=== PATIENT | male | born 1995 | race Caucasian/White ===

== ENCOUNTER 2019-03-25 13:02 | Emergency (ER) | payer MEDICAID ==
[2019-03-25 13:25] VITALS: RESP 18; TEMP 98.9
--- NOTE | 2019-03-25 14:07 | ED ---
General Adult HPI - General Chief complaint: Recheck/Abnormal Lab/Rx Stated complaint: EPS eval Time Seen by Provider: 03/25/19 13:10 Source: patient, family Mode of arrival: ambulatory Limitations: no limitations - History of Present Illness Initial comments: This is a 23-year-old male with a history of depression and anxiety in the past was brought in by family today for evaluation. He currently been using Xanax he has a history is an anxious cocaine and Adderall the past. He states he been under last stress or recent multiple sources. Per his family's not been acting his usual salt he's been more somnolent sleeping more than eating as well as he normally does not going to work or school. The concern was in addition to taking the Xanax which apparently is been in the form of xani bars he's been expressing desire to leave the family is concerned this means leave the world and dye patient states he wants to go to [place]. He denies any recent alcohol use no other modifying factors at this time. - Related Data Allergies Allergy/AdvReac Type Severity Reaction Status Date / Time No Known Allergies Allergy Verified 03/25/19 13:09 Review of Systems ROS Statement: Those systems with pertinent positive or pertinent negative responses have been documented in the HPI. ROS Other: All systems not noted in ROS Statement are negative. Past Medical History Past Medical History: No Reported History History of Any Multi-Drug Resistant Organisms: None Reported Past Surgical History: No Surgical Hx Reported Past Psychological History: Anxiety, Depression Smoking Status: Never smoker Past Alcohol Use History: Occasional Past Drug Use History: Cocaine, Prescription Drug Abuse General Exam - General Exam Comments Initial Comments: This is a well-developed well-nourished awake alert oriented times 3 male Limitations: no limitations General appearance: alert, in no apparent distress Head exam: Present: atraumatic, normocephalic, normal inspection Eye exam: Present: normal appearance, PERRL, EOMI. Absent: scleral icterus, conjunctival injection, periorbital swelling ENT exam: Present: normal exam, mucous membranes moist Neck exam: Present: normal inspection. Absent: tenderness, meningismus, lymphadenopathy Respiratory exam: Present: normal lung sounds bilaterally. Absent: respiratory distress, wheezes, rales, rhonchi, stridor Cardiovascular Exam: Present: regular rate, normal rhythm, normal heart sounds. Absent: systolic murmur, diastolic murmur, rubs, gallop, clicks GI/Abdominal exam: Present: soft, normal bowel sounds. Absent: distended, tenderness, guarding, rebound, rigid Extremities exam: Present: normal inspection, full ROM, normal capillary refill. Absent: tenderness, pedal edema, joint swelling, calf tenderness Back exam: Present: normal inspection Neurological exam: Present: alert, oriented X3, CN II-XII intact Psychiatric exam: Present: depressed, flat affect Skin exam: Present: warm, dry, intact, normal color. Absent: rash Course Vital Signs 03/25/19 13:09 Temperature 98.9 F Pulse Rate 71 Respiratory 18 Rate Blood Pressure 120/71 O2 Sat by Pulse 99 Oximetry Medical Decision Making - Medical Decision Making Patient was evaluated by the psychiatric services. Deemed to be medically cleared currently he is not a risk to himself or anyone else he will be discharged with follow-up tomorrow with psychiatry. The patient family are in agreement with this. - Lab Data Lab Results 03/25/19 Range/Units 14:24 Urine Opiates Screen Not Detected (NotDetected) Ur Oxycodone Screen Not Detected (NotDetected) Urine Methadone Screen Not Detected (NotDetected) Ur Propoxyphene Screen Not Detected (NotDetected) Ur Barbiturates Screen Not Detected (NotDetected) U Tricyclic Antidepress Not Detected (NotDetected) Ur Phencyclidine Scrn Not Detected (NotDetected) Ur Amphetamines Screen Not Detected (NotDetected) U Methamphetamines Scrn Not Detected (NotDetected) U Benzodiazepines Scrn Detected H (NotDetected) Urine Cocaine Screen Detected H (NotDetected) U Marijuana (THC) Screen Not Detected (NotDetected) Disposition Clinical Impression: Substance abuse, Depression Disposition: HOME SELF-CARE Condition: Good Instructions (If sedation given, give patient instructions): Depression (ED), Polysubstance Abuse (ED) Is patient prescribed a controlled substance at d/c from ED?: No Referrals: Flakito Jaramillo DO [Primary Care Provider] - 1-2 days
[2019-03-25 15:04] LABS: Cocaine Screen,Urine Detected (NotDetected); Opiate Screen,Urine Not Detected (NotDetected); Phencyclidine Screen,Urine Not Detected (NotDetected); Urn Cannabinoid Scrn Not Detected (NotDetected)
[2019-03-25 15:05] LABS: Amphetamine Screen,Urine Not Detected (NotDetected); Barbiturate Screen,Urine Not Detected (NotDetected); Benzodiazepines Screen,Urine Detected (NotDetected); Methadone Screen, Urine Not Detected (NotDetected); Oxycodone Screen, Urine Not Detected (NotDetected); Tricyclic Antidepressant,Urine Not Detected (NotDetected)
[2019-03-25 15:38] VITALS: BP 119/78; PULSE 70
== END 2019-03-25 15:36 | disposition home or self-care (01) ==
LOC: EC 13:02
DX: F32.9 Major depressive disorder, single episode, unspecified (principal); F19.10 Other psychoactive substance abuse, uncomplicated
CPT/HCPCS: 80306; 82075; 99284

== ENCOUNTER 2020-04-19 12:04 | Inpatient (IN) | payer MEDICAID ==
[2020-04-19] MEDS ORDERED: SODIUM CHLORIDE 0.9% 1,000 ML IV STA (12:24)
--- NOTE | 2020-04-19 12:41 | ED ---
General Adult HPI - General Chief complaint: Head Injury Stated complaint: Fall, Head Injury Time Seen by Provider: 04/19/20 12:19 Source: patient, family, RN notes reviewed, old records reviewed Mode of arrival: ambulatory Limitations: altered mental status - History of Present Illness Initial comments: 25-year-old male presenting for evaluation of altered mental status, alcohol and drug abuse as well as head trauma. He is accompanied by his mother who is able to give the majority of the history. He does have history of previous drugs of abuse. He is presenting somewhat altered, he is unable to see her in either ear. He had several falls with head trauma. He admits to alcohol as well as benzodiazepines. He denies overuse of aspirin or salicylate. He denies any other drugs of abuse. Denies focal weakness or numbness. - Related Data Home Medications Medication Instructions Recorded Confirmed No Known Home Medications 04/19/20 04/19/20 Allergies Allergy/AdvReac Type Severity Reaction Status Date / Time No Known Allergies Allergy Verified 04/19/20 13:16 Review of Systems ROS Statement: Those systems with pertinent positive or pertinent negative responses have been documented in the HPI. ROS Other: All systems not noted in ROS Statement are negative. Past Medical History Past Medical History: No Reported History History of Any Multi-Drug Resistant Organisms: None Reported Past Surgical History: No Surgical Hx Reported Past Psychological History: Anxiety, Depression Smoking Status: Never smoker Past Alcohol Use History: Occasional Past Drug Use History: Cocaine, Prescription Drug Abuse General Exam Limitations: altered mental status General appearance: in no apparent distress, lethargic Head exam: Present: atraumatic, normocephalic Eye exam: Present: normal appearance, PERRL, EOMI ENT exam: Present: normal exam, TM's normal bilaterally Neck exam: Present: normal inspection. Absent: tenderness, meningismus Respiratory exam: Present: normal lung sounds bilaterally. Absent: respiratory distress, wheezes Cardiovascular Exam: Present: normal rhythm, tachycardia GI/Abdominal exam: Present: soft. Absent: distended, tenderness, guarding Extremities exam: Present: normal inspection, normal capillary refill Neurological exam: Present: alert, CN II-XII intact, other (Patient moving all extremities symmetrically, 5 out of 5 strength throughout, no ataxia). Absent: motor sensory deficit Skin exam: Present: warm, dry Course Vital Signs 04/19/20 04/19/20 12:12 12:53 Temperature 98.0 F Pulse Rate 58 L 126 H Respiratory 16 18 Rate Blood Pressure 85/55 82/41 O2 Sat by Pulse 97 Oximetry EKG Findings - EKG Comments: EKG Findings:: EKG: Sinus tachycardia, rate of 118, SC interval 118, QRS duration 78, QTC 437, no ST segment elevation Medical Decision Making - Medical Decision Making 25-year-old male presenting for evaluation of confusion, dehydration, bilateral hearing loss. Patient admits to head trauma as well as polysubstance abuse including alcohol, prescription amphetamines, and benzodiazepines. Patient has normal tympanic membranes bilaterally. He is having difficulty hearing, uncertain of the etiology. His laboratory testing reveals leukocytosis with no other infectious symptoms. Patient appears dehydrated. He is in acute kidney failure with a creatinine of 2 and a potassium of 6.2. His EKG shows sinus tachycardia. He's given 2 L of normal saline followed by continuous IV hydration. Laboratory testing will be repeated after initial hydration. He will be admitted for electrolyte monitoring, telemetry, and fluid replacement. - Lab Data Result diagrams: 04/19/20 12:48 04/19/20 12:48 Lab Results 04/19/20 04/19/20 04/19/20 Range/Units 12:48 12:48 12:48 WBC 17.6 H (3.8-10.6) k/uL RBC 5.16 (4.30-5.90) m/uL Hgb 16.4 (13.0-17.5) gm/dL Hct 48.5 (39.0-53.0) % MCV 94.1 (80.0-100.0) fL MCH 31.8 (25.0-35.0) pg MCHC 33.7 (31.0-37.0) g/dL RDW 13.1 (11.5-15.5) % Plt Count 266 (150-450) k/uL MPV 7.0 Neutrophils % 83 % Lymphocytes % 8 % Monocytes % 7 % Eosinophils % 1 % Basophils % 1 % Neutrophils # 14.6 H (1.3-7.7) k/uL Lymphocytes # 1.4 (1.0-4.8) k/uL Monocytes # 1.2 H (0-1.0) k/uL Eosinophils # 0.1 (0-0.7) k/uL Basophils # 0.2 (0-0.2) k/uL PT 10.3 (9.0-12.0) sec INR 1.0 (<1.2) Sodium 138 (137-145) mmol/L Potassium 6.2 H* (3.5-5.1) mmol/L Chloride 104 (98-107) mmol/L Carbon Dioxide 27 (22-30) mmol/L Anion Gap 7 mmol/L BUN 16 (9-20) mg/dL Creatinine 2.06 H (0.66-1.25) mg/dL Est GFR (CKD-EPI)AfAm 50 (>60 ml/min/1.73 sqM) Est GFR (CKD-EPI)NonAf 43 (>60 ml/min/1.73 sqM) Glucose 71 L (74-99) mg/dL Plasma Lactic Acid Markus (0.7-2.0) mmol/L Calcium 9.0 (8.4-10.2) mg/dL Total Bilirubin 0.5 (0.2-1.3) mg/dL AST 40 (17-59) U/L ALT 44 (4-49) U/L Alkaline Phosphatase 64 (38-126) U/L Total Protein 7.9 (6.3-8.2) g/dL Albumin 4.7 (3.5-5.0) g/dL Salicylates <1.0 mg/dL Acetaminophen <10.0 ug/mL Serum Alcohol <10 mg/dL 04/19/20 Range/Units 12:48 WBC (3.8-10.6) k/uL RBC (4.30-5.90) m/uL Hgb (13.0-17.5) gm/dL Hct (39.0-53.0) % MCV (80.0-100.0) fL MCH (25.0-35.0) pg MCHC (31.0-37.0) g/dL RDW (11.5-15.5) % Plt Count (150-450) k/uL MPV Neutrophils % % Lymphocytes % % Monocytes % % Eosinophils % % Basophils % % Neutrophils # (1.3-7.7) k/uL Lymphocytes # (1.0-4.8) k/uL Monocytes # (0-1.0) k/uL Eosinophils # (0-0.7) k/uL Basophils # (0-0.2) k/uL PT (9.0-12.0) sec INR (<1.2) Sodium (137-145) mmol/L Potassium (3.5-5.1) mmol/L Chloride (98-107) mmol/L Carbon Dioxide (22-30) mmol/L Anion Gap mmol/L BUN (9-20) mg/dL Creatinine (0.66-1.25) mg/dL Est GFR (CKD-EPI)AfAm (>60 ml/min/1.73 sqM) Est GFR (CKD-EPI)NonAf (>60 ml/min/1.73 sqM) Glucose (74-99) mg/dL Plasma Lactic Acid Markus 2.1 H* (0.7-2.0) mmol/L Calcium (8.4-10.2) mg/dL Total Bilirubin (0.2-1.3) mg/dL AST (17-59) U/L ALT (4-49) U/L Alkaline Phosphatase (38-126) U/L Total Protein (6.3-8.2) g/dL Albumin (3.5-5.0) g/dL Salicylates mg/dL Acetaminophen ug/mL Serum Alcohol mg/dL Critical Care Time Critical Care Time: Yes Total Critical Care Time: 35 Disposition Clinical Impression: Hyperkalemia, Acute kidney injury, Polysubstance abuse, Bilateral hearing loss Disposition: ADMITTED IP TO THIS [facility] Condition: Stable Is patient prescribed a controlled substance at d/c from ED?: No Referrals: Flakito Jaramillo DO [Primary Care Provider] - 1-2 days Time of Disposition: 13:55 Decision to Admit Reason: Admit from EC Decision Date: 04/19/20 Decision Time: 13:55
[2020-04-19 13:09] LABS: ALT 44 U/L (4-49); AST 40 U/L (17-59); Acetaminophen <10.0 ug/mL; African American GFR (CKD) 50 (>60 ml/min/1.73 sqM); Albumin 4.7 g/dL (3.5-5.0); Alcohol <10 mg/dL; Alkaline Phosphatase 64 U/L (38-126); Anion Gap 7 mmol/L; Blood Urea Nitrogen 16 mg/dL (9-20); Carbon Dioxide 27 mmol/L (22-30); Chloride 104 mmol/L (98-107); Glucose 71 mg/dL (74-99); Non-African American GFR(CKD) 43 (>60 ml/min/1.73 sqM); Salicylate <1.0 mg/dL; Sodium 138 mmol/L (137-145); Total Bilirubin 0.5 mg/dL (0.2-1.3); Total Protein 7.9 g/dL (6.3-8.2)
[2020-04-19 13:12] LABS: Potassium 6.2 mmol/L (3.5-5.1)
[2020-04-19] MEDS ORDERED: SODIUM CHLORIDE 0.9% 1,000 ML IV ONE (13:12)
--- NOTE | 2020-04-19 13:16 | CT ---
EXAMINATION TYPE: CT brain susieine wo con DATE OF EXAM: 04/19/2020 COMPARISON: None HISTORY: Fall yesterday with injury CT DLP: 1511.1 mGycm, Automated exposure control for dose reduction was used. CONTRAST: Patient injected with 0 mL of Isovue 300. CT of the brain is performed utilizing 3 mm thick sections through the posterior fossa and 3 mm thick sections through the remaining calvarium. Study is performed within 24 hours of arrival to the hospital. No abnormal hyperdensity is present to suggest an acute intracranial hemorrhage. No mass lesion is evident. No acute infarcts are evident. Ventricles and sulci are appropriate for the patient age. Paranasal sinuses and mastoid air cells within the [id number] are clear. IMPRESSIONS: 1. Normal CT brain. CT cervical spine. COMPARISON: None CT of the cervical spine is performed in the axial plane at 2 mm thick sections. Reconstructed image s in the coronal, and sagittal plane are reviewed on the computer. No acute fractures are evident. Vertebral body alignment is normal. Disc heights are preserved. Vertebral body heights are preserved. No spinal canal stenosis is evident. No neural foraminal stenosis is evident. IMPRESSIONS: 1. Normal CT cervical spine.
[2020-04-19 13:21] LABS: Basophils # (A) 0.2 k/uL (0-0.2); Basophils % (A) 1 %; Eosinophils # (A) 0.1 k/uL (0-0.7); Eosinophils % (A) 1 %; HCT 48.5 % (39.0-53.0); HGB 16.4 gm/dL (13.0-17.5); Lymphocytes # (A) 1.4 k/uL (1.0-4.8); Lymphocytes % (A) 8 %; MCH 31.8 pg (25.0-35.0); MCHC 33.7 g/dL (31.0-37.0); MCV 94.1 fL (80.0-100.0); Monocytes # (A) 1.2 k/uL (0-1.0); Monocytes % (A) 7 %; Neutrophils # (A) 14.6 k/uL (1.3-7.7); Neutrophils % (A) 83 %; Platelet Count 266 k/uL (150-450); RBC 5.16 m/uL (4.30-5.90); RDW 13.1 % (11.5-15.5); WBC 17.6 k/uL (3.8-10.6)
[2020-04-19 13:27] LABS: Prothrombin Time 10.3 sec (9.0-12.0)
[2020-04-19] MEDS ORDERED: NALOXONE 0.4 MG/ML 1 ML VIAL IV PRN (13:50)
[2020-04-19] MEDS ORDERED: DEXAMETHASONE SOD PHOSPHATE 10 MG/ML 1 ML VIAL IV STA (13:56)
[2020-04-19] MEDS: SODIUM CHLORIDE 0.9% 1,000 ML IV SCH ×2 (14:03→21:23)
[2020-04-19 14:08] LABS: Basophils # (A) 0.3 k/uL (0-0.2); Basophils % (A) 2 %; Eosinophils # (A) 0.2 k/uL (0-0.7); Eosinophils % (A) 1 %; HCT 44.3 % (39.0-53.0); HGB 15.1 gm/dL (13.0-17.5); Lymphocytes # (A) 1.4 k/uL (1.0-4.8); Lymphocytes % (A) 9 %; MCH 31.9 pg (25.0-35.0); MCHC 34.1 g/dL (31.0-37.0); MCV 93.6 fL (80.0-100.0); Mean Platelet Volume 6.9; Monocytes # (A) 0.9 k/uL (0-1.0); Monocytes % (A) 6 %; Neutrophils # (A) 12.7 k/uL (1.3-7.7); Neutrophils % (A) 81 %; Platelet Count 229 k/uL (150-450); RBC 4.74 m/uL (4.30-5.90); RDW 12.7 % (11.5-15.5); WBC 15.7 k/uL (3.8-10.6)
[2020-04-19 14:12] LABS: Glucose,Whole Blood 89 mg/dL (75-99)
[2020-04-19 14:18] LABS: Albumin 3.8 g/dL (3.5-5.0); Calcium 7.7 mg/dL (8.4-10.2); Magnesium 1.9 mg/dL (1.6-2.3); Potassium 5.6 mmol/L (3.5-5.1); Total Bilirubin 0.4 mg/dL (0.2-1.3); Total Protein 6.6 g/dL (6.3-8.2)
[2020-04-19] MEDS ORDERED: CALCIUM GLUCONATE 1 GM in SODIUM CHLORIDE 0.9% 100 ML IVPB ONE (14:45)
--- NOTE | 2020-04-19 15:55 | P.HPIM ---
History of Present Illness On-call hospitalist covering Dr. Jaramillo over the weekend, Dr. Jaramillo resume the care of the patient on Saturday 04/21 This is a pleasant 25 years old male with no significant past medical history. He is a patient of Dr. Jaramillo. Patient presents because of hearing difficulties, altered mental status. Patient states yesterday he was walking down stairs when he slipped and fell on the floor and he hit his head, after that he sat down for half an hour, felt better and he went to his friend's home about half mile away where he spent the night using a dural, Xanax and alcohol, next day he went home and then went to work (at [employer]) when they noticed he has hearing difficulty in both sides and they sent him to the hospital. In the hospital patient was a little bit confused and he has hearing difficulty on both sides. However curren tly now he is awake and alert. On admission patient was found to be hypotensive 85/55, received 2 L of normal saline and his blood pressure is 94/58, he was tachycardic at 126 and currently 110. Also he has leukocytosis of 17.6 K came down to 15.7. His potassium was elevated at 6.2 and creatinine 2.0, with IV fluid came down to 5.6 and 1.7 creatinine respectively. Risks of BMP is unremarkable and liver enzymes are not elevated. Lactic acid is high at 2.1. Salicylate, Tylenol and alcohol levels were all less than 10. EKG showing sinus tachycardia at [address]-T changes. CT of the head and cervical spine showing normal cervical CT and normal CT of the brain In the emergency room he received 2 L of normal saline, and started on normal saline at 2:30 milliliters per hour. Review of Systems CONSTITUTIONAL: No fever, no malaise, no fatigue. HEENT: No recent visual problems or hearing problems. Denied any sore throat. CARDIOVASCULAR: No orthopnea, PND, no palpitations, no syncope. PULMONARY: No shortness of breath, no cough, no hemoptysis. GASTROINTESTINAL: No diarrhea, no nausea, no vomiting, no abdominal pain. Normoactive bowel sounds. NEUROLOGICAL: No headaches, no weakness, no numbness. HEMATOLOGICAL: Denies any bleeding or petechiae. GENITOURINARY: Denies any burning micturition, frequency, or urgency. MUSCULOSKELETAL/RHEUMATOLOGICAL: Denies any joint pain, swelling, or any muscle pain. ENDOCRINE: Denies any polyuria or polydipsia. Past Medical History Past Medical History: No Reported History History of Any Multi-Drug Resistant Organisms: None Reported Past Surgical History: No Surgical Hx Reported Past Psychological History: Anxiety, Depression Smoking Status: Never smoker Past Alcohol Use History: Occasional Past Drug Use History: Cocaine, Prescription Drug Abuse Medications and Allergies Home Medications Medication Instructions Recorded Confirmed Type No Known Home Medications 04/19/20 04/19/20 History Allergies Allergy/AdvReac Type Severity Reaction Status Date / Time No Known Allergies Allergy Verified 04/19/20 13:16 Physical Exam Vitals: Vital Signs Temp Pulse Resp BP Pulse Ox 04/19/20 14:28 110 H 18 94/58 100 04/19/20 12:53 126 H 18 82/41 04/19/20 12:12 98.0 F 58 L 16 85/55 97 Intake and Output 04/19/20 04/19/20 04/19/20 06:59 14:59 22:59 Other: Weight 85.275 kg GENERAL: The patient is alert and oriented x3, not in any acute distress. Well developed, well nourished. HEENT: Pupils are round and equally reacting to light. EOMI. No scleral icterus. No conjunctival pallor. Normocephalic, atraumatic. No pharyngeal erythema. No thyromegaly. CARDIOVASCULAR: S1 and S2 present. No murmurs, rubs, or gallops. PULMONARY: Chest is clear to auscultation, no wheezing or crackles. ABDOMEN: Soft, nontender, nondistended, normoactive bowel sounds. No palpable organomegaly. MUSCULOSKELETAL: No joint swelling or deformity. EXTREMITIES: No cyanosis, clubbing, or pedal edema. NEUROLOGICAL: Gross neurological examination did not reveal any focal deficits. SKIN: No rashes. No petechiae Results CBC & Chem 7: 04/19/20 14:02 04/19/20 14:02 Labs: Abnormal Lab Results - Last 24 Hours (Table) 04/19/20 04/19/20 04/19/20 Range/Units 12:48 12:48 12:48 WBC 17.6 H (3.8-10.6) k/uL Neutrophils # 14.6 H (1.3-7.7) k/uL Monocytes # 1.2 H (0-1.0) k/uL Basophils # (0-0.2) k/uL Potassium 6.2 H* (3.5-5.1) mmol/L Chloride (98-107) mmol/L Creatinine 2.06 H (0.66-1.25) mg/dL Glucose 71 L (74-99) mg/dL Plasma Lactic Acid Markus 2.1 H* (0.7-2.0) mmol/L Calcium (8.4-10.2) mg/dL 04/19/20 04/19/20 Range/Units 14:02 14:02 WBC 15.7 H (3.8-10.6) k/uL Neutrophils # 12.7 H (1.3-7.7) k/uL Monocytes # (0-1.0) k/uL Basophils # 0.3 H (0-0.2) k/uL Potassium 5.6 H (3.5-5.1) mmol/L Chloride 108 H (98-107) mmol/L Creatinine 1.77 H (0.66-1.25) mg/dL Glucose (74-99) mg/dL Plasma Lactic Acid Markus (0.7-2.0) mmol/L Calcium 7.7 L (8.4-10.2) mg/dL Assessment and Plan Assessment: -Bilateral hearing difficulty , or going to consult ENT service -Substance abuse, patient is counseled to quit -Hypotension, continue with aggressive hydration and monitor the patient closely -Acute kidney injury with hyperkalemia, mostly prerenal, continue with IV fluids, monitor creatinine and potassium -Anxiety, and depression. No suicidal ideation. Consult psychiatry DVT prophylaxis: Subcutaneous heparin GI prophylaxis Pepcid Prognosis is guarded Plan: This is a pleasant 25 years old male who presents with substance abuse, acute kidney injury, depression and bilateral hearing difficulty. Continue with IV fluid, possible psychiatrist and ENT. Monitor creatinine and potassium. Put the patient on neuro check Labs and medication were reviewed.. Continue same treatment. Continue with symptomatic treatment. Resume home medication. Monitor lytes and vitals. DVT and GI prophylaxis. Further recommendations depends on the clinical course of the patient DVT prophylaxis: Subcutaneous heparin GI Prophylaxis: Pepcid Prognosis is guarded
[2020-04-19] MEDS ORDERED: ACETAMINOPHEN TAB 325 MG TAB PO PRN (19:19)
[2020-04-19] MEDS: FAMOTIDINE 20 MG/2 ML VIAL IV SCH (21:22)
[2020-04-19] MEDS: HEPARIN SODIUM,PORCINE 5,000 UNIT/ML 1 ML VIAL SQ SCH (21:23)
[2020-04-19 22:46] LABS: Appearance,Urine Cloudy (Clear); Bilirubin,Urine Negative (Negative); Blood,Urine Small (Negative); Cellular Casts,Urine 4 /lpf (0); Color,Urine Yellow; Glucose,Urine (UA) Negative (Negative); Granular Casts,Urine 5 /lpf (0); Hyaline Casts,Urine 45 /lpf (0-2); Ketones,Urine Negative (Negative); Leukocyte Esterase,Urine Negative (Negative); Mucus,Urine Few /hpf; Nitrite,Urine Negative (Negative); PH, Urine 5.5 (5.0-8.0); Protein,Urine 1+ (Negative); RBC,Urine 4 /hpf (0-5); Specific Gravity,Urine 1.015 (1.001-1.035); Sperm,Urine Moderate /hpf; Squamous Epithelial Cell,Urine 3 /hpf (0-4); Urobilinogen,Urine <2.0 mg/dL (<2.0); WBC,Urine 18 /hpf (0-5)
[2020-04-19 22:50] LABS: Amphetamine Screen,Urine Detected (NotDetected); Barbiturate Screen,Urine Not Detected (NotDetected); Benzodiazepines Screen,Urine Detected (NotDetected); Cocaine Screen,Urine Not Detected (NotDetected); Methadone Screen, Urine Not Detected (NotDetected); Opiate Screen,Urine Not Detected (NotDetected); Oxycodone Screen, Urine Not Detected (NotDetected); Phencyclidine Screen,Urine Not Detected (NotDetected); Tricyclic Antidepressant,Urine Not Detected (NotDetected); Urn Cannabinoid Scrn Detected (NotDetected)
[2020-04-20] MEDS: SODIUM CHLORIDE 0.9% 1,000 ML IV SCH ×2 (03:40→15:25)
[2020-04-20 07:19] LABS: Basophils # (A) 0.1 k/uL (0-0.2); Basophils % (A) 0 %; Eosinophils % (A) 0 %; HCT 41.8 % (39.0-53.0); HGB 14.4 gm/dL (13.0-17.5); Lymphocytes # (A) 0.9 k/uL (1.0-4.8); Lymphocytes % (A) 9 %; MCH 32.3 pg (25.0-35.0); MCHC 34.5 g/dL (31.0-37.0); MCV 93.5 fL (80.0-100.0); Mean Platelet Volume 7.2; Monocytes # (A) 0.6 k/uL (0-1.0); Monocytes % (A) 5 %; Neutrophils # (A) 8.8 k/uL (1.3-7.7); Neutrophils % (A) 84 %; Platelet Count 183 k/uL (150-450); RBC 4.47 m/uL (4.30-5.90); RDW 12.4 % (11.5-15.5); WBC 10.5 k/uL (3.8-10.6)
[2020-04-20 07:28] LABS: Chloride 104 mmol/L (98-107)
[2020-04-20 07:30] LABS: African American GFR (CKD) >90 (>60 ml/min/1.73 sqM); Anion Gap 4 mmol/L; Blood Urea Nitrogen 15 mg/dL (9-20); Calcium 8.4 mg/dL (8.4-10.2); Carbon Dioxide 26 mmol/L (22-30); Glucose 136 mg/dL (74-99); Non-African American GFR(CKD) >90 (>60 ml/min/1.73 sqM); Potassium 5.1 mmol/L (3.5-5.1); Sodium 134 mmol/L (137-145)
[2020-04-20] MEDS: FAMOTIDINE 20 MG/2 ML VIAL IV SCH ×2 (09:29→20:45)
[2020-04-20] MEDS: HEPARIN SODIUM,PORCINE 5,000 UNIT/ML 1 ML VIAL SQ SCH ×2 (09:29→20:46)
--- NOTE | 2020-04-20 14:25 | P.PN ---
Subjective On-call hospitalist covering Dr. Jaramillo over the weekend, Dr. Jaramillo resume the care of the patient on Saturday 04/21 This is a pleasant 25 years old male with no significant past medical history. He is a patient of Dr. Jaramillo. Patient presents because of hearing difficulties, altered mental status. Patient states yesterday he was walking down stairs when he slipped and fell on the floor and he hit his head, after that he sat down for half an hour, felt better and he went to his friend's home about half mile away where he spent the night using a dural, Xanax and alcohol, next day he went home and then went to work (at [employer]) when they noticed he has hearing difficulty in both sides and they sent him to the hospital. In the hospital patient was a little bit confused and he has hearing difficulty on both sides. However currently now he is awake and alert. On admission patient was found to be hypotensive 85/55, received 2 L of normal saline and his blood pressure is 94/58, he was tachycardic at 126 and currently 110. Also he has leukocytosis of 17.6 K came down to 15.7. His potassium was elevated at 6.2 and creatinine 2.0, with IV fluid came down to 5.6 and 1.7 creatinine respectively. Risks of BMP is unremarkable and liver enzymes are not elevated. Lactic acid is high at 2.1. Salicylate, Tylenol and alcohol levels were all less than 10. EKG showing sinus tachycardia at [address]-T changes. CT of the head and cervical spine showing normal cervical CT and normal CT of the brain In the emergency room he received 2 L of normal saline, and started on normal saline at 2:30 milliliters per hour. 04/20/2020 Patient hearing difficulty on both ears on admission have completely resolved as he states this morning, his urine back to normal. However was still instructed him to follow-up with Dr. Brownlee upon discharge in one week and he agrees with it. He is hemodynamically stable and blood pressure is improved and currently 160/65. He is not bradycardic. Leukocytosis is back to normal at 10.5 K, sodium was slightly on the low side 134, potassium was not than the reference range at 5.1 and creatinine within normal limits at 1.0. Glucose 136. However for calcitonin is elevated at 1.5 Urinalysis is abnormal possible elements of UTI versus other. We will repeat urine sample. We will start the patient on Augmentin We will repeat labs in the morning. Continue with gentle hydration at 50 mL/h Psychiatric consult still pending Review of Systems CONSTITUTIONAL: No fever, no malaise, no fatigue. HEENT: No recent visual problems or hearing problems. Denied any sore throat. CARDIOVASCULAR: No orthopnea, PND, no palpitations, no syncope. PULMONARY: No shortness of breath, no cough, no hemoptysis. GASTROINTESTINAL: No diarrhea, no nausea, no vomiting, no abdominal pain. Normoactive bowel sounds. NEUROLOGICAL: No headaches, no weakness, no numbness. Active Medications Generic Name Dose Route Start Last Admin Trade Name Freq PRN Reason Stop Dose Admin Acetaminophen 650 mg 04/19/20 19:19 Acetaminophen Tab 325 Mg Tab PO Q6HR PRN Fever and/ or Pain Famotidine 20 mg 04/19/20 21:00 04/20/20 09:29 Famotidine 20 Mg/2 Ml Vial IV Not Given Q12HR RICHY Heparin Sodium (Porcine) 5,000 unit 04/19/20 21:00 04/20/20 09:29 Heparin Sodium,Porcine 5,000 Unit/Ml 1 Ml Vial SQ Not Given Q12HR RICHY Sodium Chloride 1,000 mls @ 75 mls/hr 04/19/20 14:00 04/20/20 03:40 Saline 0.9% IV 100 mls/hr .[id number] RICHY Administration Naloxone HCl 0.2 mg 04/19/20 13:50 Naloxone 0.4 Mg/Ml 1 Ml Vial IV Q2M PRN Opioid Reversal Objective - Vital Signs Vital signs: Vital Signs Temp 97.9 F 04/20/20 11:14 Pulse 65 04/20/20 11:14 Resp 16 04/20/20 11:14 BP 106/65 04/20/20 11:14 Pulse Ox 96 04/20/20 11:14 Intake & Output 04/19/20 04/20/20 04/20/20 18:59 06:59 18:59 Intake Total 540 2000 540 Output Total 900 Balance 540 1100 540 Weight 85.275 kg 89.3 kg Intake: Intake, IV Titration 1400 Amount Sodium Chloride 0.9% 1, 1400 000 ml @ 75 mls/hr IV . [id number] RICHY Rx#:[id number] Oral 540 600 540 Output: Urine 900 Other: Voiding Method Urinal # Voids 1 1 2 - Exam GENERAL: The patient is alert and oriented x3, not in any acute distress. Well developed, well nourished. HEENT: Pupils are round and equally reacting to light. EOMI. No scleral icterus. No conjunctival pallor. Normocephalic, atraumatic. No pharyngeal erythema. No thyromegaly. CARDIOVASCULAR: S1 and S2 present. No murmurs, rubs, or gallops. PULMONARY: Chest is clear to auscultation, no wheezing or crackles. ABDOMEN: Soft, nontender, nondistended, normoactive bowel sounds. No palpable organomegaly. MUSCULOSKELETAL: No joint swelling or deformity. EXTREMITIES: No cyanosis, clubbing, or pedal edema. NEUROLOGICAL: Gross neurological examination did not reveal any focal deficits. SKIN: No rashes. no petechiae. - Labs CBC & Chem 7: 04/20/20 06:40 04/20/20 06:40 Labs: Abnormal Lab Results - Last 24 Hours (Table) 04/19/20 04/20/20 04/20/20 Range/Units 21:56 06:40 06:40 Neutrophils # 8.8 H (1.3-7.7) k/uL Lymphocytes # 0.9 L (1.0-4.8) k/uL Sodium 134 L (137-145) mmol/L Glucose 136 H (74-99) mg/dL Procalcitonin (0.02-0.09) ng/mL Urine Protein 1+ H (Negative) Urine Blood Small H (Negative) Urine WBC 18 H (0-5) /hpf Urine WBC Clumps Few H (None) /hpf Hyaline Casts 45 H (0-2) /lpf Urine Mucus Few H (None) /hpf Urine Sperm Moderate H (None) /hpf Ur Amphetamines Screen Detected H (NotDetected) U Benzodiazepines Scrn Detected H (NotDetected) U Marijuana (THC) Screen Detected H (NotDetected) 04/20/20 Range/Units 06:40 Neutrophils # (1.3-7.7) k/uL Lymphocytes # (1.0-4.8) k/uL Sodium (137-145) mmol/L Glucose (74-99) mg/dL Procalcitonin 1.52 H (0.02-0.09) ng/mL Urine Protein (Negative) Urine Blood (Negative) Urine WBC (0-5) /hpf Urine WBC Clumps (None) /hpf Hyaline Casts (0-2) /lpf Urine Mucus (None) /hpf Urine Sperm (None) /hpf Ur Amphetamines Screen (NotDetected) U Benzodiazepines Scrn (NotDetected) U Marijuana (THC) Screen (NotDetected) Assessment and Plan Assessment: -Bilateral hearing difficulty , follow-up with ENT service upon discharge, c urrently resolved as per patient -Substance abuse, patient is counseled to quit. Psych consult -Hypotension, improved continue with gentle hydration -Acute kidney injury with hyperkalemia, mostly prerenal, continue with IV fluids, monitor creatinine and potassium. Improving -Anxiety, and depression. No suicidal ideation. Consult psychiatry DVT prophylaxis: Subcutaneous heparin GI prophylaxis Pepcid Prognosis is guarded Dr. Jaramillo resume the care of the patient tomorrow Plan: This is a pleasant 25 years old male who presents with substance abuse, acute kidney injury, depression and bilateral hearing difficulty. Continue with IV fluid, possible psychiatrist and ENT. Monitor creatinine and potassium. Put the patient on neuro check Labs and medication were reviewed.. Continue same treatment. Continue with symptomatic treatment. Resume home medication. Monitor lytes and vitals. DVT and GI prophylaxis. Further recommendations depends on the clinical course of the patient DVT prophylaxis: Subcutaneous heparin GI Prophylaxis: Pepcid Prognosis is guarded
--- NOTE | 2020-04-20 14:37 | P.CN ---
Psychiatric Consult - . Consult date: 04/20/20 Consult:: IDENTIFYING DATA: This patient is a ago, employed, 20 7:00 male who was admitted for hearing difficulties and altered mental status. HISTORY OF PRESENT ILLNESS: The patient presented to the hospital on 04/18/2020 after expressing difficulty hearing after he slipped and hit his head on the floor. The patient reports that he was out with his friends engaging in Xanax and alcohol use in order to cope with the recent breakup. He states that he slipped and hit his head on the floor and that when he went to work the next day at [employer], he had difficulty in hearing in both sides of his head and decided to go to the emergency department. Psychiatry has been consulted for evaluation of depression and substance use. In regards to depression, the patient reports that he is currently dealing with the breakup. He is not reporting any significant symptoms of depression aside from some difficulty sleeping and elevated anxiety. He is reporting no suicidal or homicidal ideation, intention, and/or plan. He is future oriented and has been productive at work and has been socializing with peers. He is not reporting any significant symptoms of bipolar disorder. He reports no increased goal-directed behavior, grandiosity, or pressured speech. The patient reports no significant history of auditory or visual hallucinations. In regards to substance use, the patient reports that he occasionally drink alcohol. He states that when he drinks alcohol though he drinks 3-6 beers in one sitting. He reports he would drink a couple of days per week. He denies any history of withdrawal symptoms. He denies any past treatment for alcohol use disorder. He does state that he uses illicit Xanax which she states he takes to help him cope with his breakup. He reports he would use 1-2 bars of Xanax per day. He states that this is been going on for the past 3 weeks. He denies any history of benzodiazepine withdrawal. He does also report that he has engaged in illicit Adderall use in the past as well. He was also seen in emergency department March of last year after his parents express concern for his substance use. PAST PSYCHIATRIC HISTORY: Patient has a a history of depression. Unable to recall his past psychotropic medication but states he was on an antidepressant when he was following with Dr. Hoyos in the outpatient setting. Patient denies any previous psychiatric hospitalizations. Patient was seeing a therapist by the name of Jamil Cartagena, but has not been able to see him since the start of the pandemic. Patient denies any history of suicide attempts in the past. PAST MEDICAL HISTORY: No Reported medical history. ALLERGIES: as per EMR. CHEMICAL DEPENDENCY HISTORY: as per HPI. FAMILY PSYCHIATRIC/SUBSTANCE USE HISTORY: Denies SOCIAL HISTORY: Patient was born and raised in [place]. He currently works at [employer] He has a bachelor's degree from [employer]. He is currently single, never , and has no children. He lives with his father. MENTAL STATUS EXAM: General Appearance: Patient appears to be stated age is alert, pleasant, and cooperative. Patient appears to have fair hygiene and grooming wearing hospital gown with fair eye contact. Behavior: Patient is calmly lying in bed without any agitated behavior. Speech: Patient's speech is fluent and nonpressured. Mood/Affect: Patient reports their mood is "okay", affect is embarrassed. Suicidality/Homicidality: Patient denies having any suicidal or homicidal ideation, intention, and/or plan. Perceptions: Patient denies any visual hallucinations and denies any auditory hallucinations Though content/process: There is no evidence of any delusional thought content and thought process is linear and goal-directed. Memory and concentration: AOX3, grossly intact for the purposes of this session. Can spell "WORLD" backwards Judgment and insight: Fair IMPRESSIONS: Adjustment disorder, with depressive features Alcohol use disorder, binge type Benzodiazepine use disorder Stimulant use disorder PLAN: -At this time patient DOES NOT meet criteria for inpatient psychiatric admission. -Patient was counseled on substance abuse. We discussed at length the importance of appropriate coping skills and the dangers of addiction. We also discussed options for possible rehab. The patient is not interested in going to rehab at this time. -Treatment for substance abuse is a voluntary process. Patient is currently contemplative at this time. -Would recommend the following medication changes/additions: We will not start any medications. We recommend outpatient psychiatric and psychotherapy follow-up. -Recommend social work consult to provide the patient with resources to set up a new psychiatric provider. The patient states that he is already following with Jamil Cartagena for psychotherapy services and wishes to continue to do so. -Psychiatry will sign off at this point, please contact with any questions. 04/20/20 14:27 04/20/20 14:33
[2020-04-20] MEDS: AMOXIC-POT CLAV 875-125MG 1 EACH TAB PO SCH ×2 (15:25→20:45)
[2020-04-20 15:39] LABS: Appearance,Urine Clear (Clear); Bilirubin,Urine Negative (Negative); Blood,Urine Negative (Negative); Color,Urine Light Yellow; Glucose,Urine (UA) Negative (Negative); Ketones,Urine Negative (Negative); Leukocyte Esterase,Urine Negative (Negative); Nitrite,Urine Negative (Negative); PH, Urine 6.5 (5.0-8.0); Protein,Urine Negative (Negative); Specific Gravity,Urine 1.005 (1.001-1.035); Urobilinogen,Urine <2.0 mg/dL (<2.0)
[2020-04-20 22:15] VITALS: RESP 18
[2020-04-21 04:16] VITALS: TEMP 97.8
[2020-04-21] MEDS: SODIUM CHLORIDE 0.9% 1,000 ML IV SCH (04:56)
[2020-04-21 07:45] LABS: Basophils # (A) 0.1 k/uL (0-0.2); Basophils % (A) 1 %; Eosinophils # (A) 0.2 k/uL (0-0.7); Eosinophils % (A) 2 %; HGB 13.3 gm/dL (13.0-17.5); Lymphocytes % (A) 20 %; MCH 31.5 pg (25.0-35.0); MCHC 33.4 g/dL (31.0-37.0); MCV 94.3 fL (80.0-100.0); Mean Platelet Volume 7.1; Monocytes # (A) 0.6 k/uL (0-1.0); Monocytes % (A) 6 %; Neutrophils % (A) 70 %; Platelet Count 176 k/uL (150-450); RBC 4.24 m/uL (4.30-5.90); RDW 12.5 % (11.5-15.5); WBC 9.9 k/uL (3.8-10.6)
[2020-04-21 07:57] LABS: African American GFR (CKD) >90 (>60 ml/min/1.73 sqM); Anion Gap 3 mmol/L; Blood Urea Nitrogen 12 mg/dL (9-20); Carbon Dioxide 27 mmol/L (22-30); Chloride 107 mmol/L (98-107); Glucose 94 mg/dL (74-99); Non-African American GFR(CKD) >90 (>60 ml/min/1.73 sqM); Sodium 137 mmol/L (137-145)
[2020-04-21] MEDS: FAMOTIDINE 20 MG/2 ML VIAL IV SCH (09:23)
[2020-04-21] MEDS: HEPARIN SODIUM,PORCINE 5,000 UNIT/ML 1 ML VIAL SQ SCH (09:23)
[2020-04-21] MEDS: AMOXIC-POT CLAV 875-125MG 1 EACH TAB PO SCH (09:23)
[2020-04-21 10:38] VITALS: BP 114/67; PULSE 64
--- NOTE | 2020-04-22 10:44 | P.DS ---
Providers Date of admission: 04/19/20 13:50 Expected date of discharge: 04/21/20 Attending physician: Flakito Jaramillo Consults: 04/19/20 15:46 Consult Physician Urgent Consulting Provider: Victor M Stanton Consult Reason/Comments: depresion and substance abuse Do you want consulting provider notified?: Yes Primary care physician: Flakito Jaramillo Hospital Course: Final Diagnoses: Polysubstance abuse with alcohol, benzodiazepines and Adderall in the past Anxiety, Depression, recently broke up with his girlfriend, no suicidal ideation Status post fall, difficulty hearing bilateral ears, currently resolved, outpatient follow-up with ENT Hypotension, improved with IV fluid hydration Acute renal failure with hyperkalemia, prerenal, improved with IV fluid hydration Hospital course: This is a 25-year-old gentleman admitted with hearing difficulties status post fall secondary to binge ETOH drinking with benzos. Patient reports recent breakup with girlfriend. Head CT reported normal. Denies lightheadedness ,dizziness or focal deficits. Loss of hearing hearing resolved. Received IV fluid hydration Evaluated by psychiatry. Significant clinical improvement. Cleared by psychiatry for discharge. Patient has been advised to follow-up with ENT OP. Patient will be discharged home today in a stable condition with guarded prognosis. For further details please refer to EHR. The impression and plan of care has been dictated as directed. : I performed a history and examination of this patient, discussed the same with the dictator. I agree with the dictator's note ,documented as a scribe. Any additional findings or plans will be noted. Patient Condition at Discharge: Stable Plan - Discharge Summary Discharge Rx Participant: Yes New Discharge Prescriptions: New Amoxic-Pot Clav 875-125Mg [Augmentin 875-125] 1 each PO Q12HR #14 tab Famotidine [Pepcid] 20 mg PO BID #20 tablet Discharge Medication List Amoxic-Pot Clav 875-125Mg [Augmentin 875-125] 1 each PO Q12HR #14 tab 04/21/20 [Rx] Famotidine [Pepcid] 20 mg PO BID #20 tablet 04/21/20 [Rx] Follow up Appointment(s)/Referral(s): [facility], Psychiatry [Other] - 1 Week Daniel Qureshi DO [Doctor of Osteopathic Medicine] - 05/06/20 8:30 am (Please bring CT) Flakito Jaramillo DO [Primary Care Provider] - 04/24/20 2:00 pm Ambulatory/Diagnostic Orders: Basic Metabolic Panel [LAB.AMB] Time Frame: 3 Days, Location: None Selected Patient Instructions/Handouts: Acute Kidney Injury (DC), Polysubstance Abuse (ED) Activity/Diet/Wound Care/Special Instructions: Dr Qureshi would like to see the patient as outpatient in order to complete a full evaluation with hearing test and the disulfurizer tender. No recreational dug use, no etoh, no xanax/benzos. Discharge/Stand Alone Forms: Work/School Release / Restrict Discharge Disposition: HOME SELF-CARE
== END 2020-04-21 11:57 | disposition home or self-care (01) | DRG 897 ==
LOC: EC 12:04 → 3SCARD 13:50
PROVIDERS: ADMIT Family Medicine; ATTEND Family Medicine
DX: F19.10 Other psychoactive substance abuse, uncomplicated (principal); N17.9 Acute kidney failure, unspecified; F10.10 Alcohol abuse, uncomplicated; Y90.0 Blood alcohol level of less than 20 mg/100 ml; F32.9 Major depressive disorder, single episode, unspecified; E87.5 Hyperkalemia; E86.0 Dehydration; F41.9 Anxiety disorder, unspecified; D72.829 Elevated white blood cell count, unspecified; H91.93 Unspecified hearing loss, bilateral; R29.6 Repeated falls; I95.9 Hypotension, unspecified
CPT/HCPCS: 36415; 70450; 72125; 80048; 80053; 80306; 80320; 80329; 81001; 81003; 83520; 83605; 83735; 84145; 85025; 85610; 93005; 96361; 96365; 96375; 99291

== ENCOUNTER 2020-05-06 09:00 | Inpatient (IN) | payer MEDICAID ==
[2020-05-06] MEDS ORDERED: SODIUM CHLORIDE 0.9% 500 ML 500 ML IV STA (09:16)
--- NOTE | 2020-05-06 09:19 | ED ---
General Adult HPI - General Chief complaint: Seizure Stated complaint: sizures Time Seen by Provider: 05/06/20 09:06 Source: patient, RN notes reviewed, old records reviewed Mode of arrival: wheelchair Limitations: no limitations - History of Present Illness Initial comments: 25-year-old male presenting for seizure activity, multiple falls. Patient is currently going through detox from both alcohol and benzodiazepine abuse. He states that prior to his abstinence which began 5 days ago he was on up to 6 mg of Xanax daily as well as a proximally 5 beers. He has been sober for 5 days. He is going through an outpatient rehabilitation program. He's had shaking and what appears to be seizure activity as well as multiple falls. No foreign body tonic-clonic seizure seizure described as more focal in nature. He has hit his head with the falls. He's been eating and drinking well, no vomiting, no fever. - Related Data Home Medications Medication Instructions Recorded Confirmed No Known Home Medications 05/06/20 05/06/20 Allergies Allergy/AdvReac Type Severity Reaction Status Date / Time No Known Allergies Allergy Verified 05/06/20 09:45 Review of Systems ROS Statement: Those systems with pertinent positive or pertinent negative responses have been documented in the HPI. ROS Other: All systems not noted in ROS Statement are negative. Past Medical History Past Medical History: No Reported History History of Any Multi-Drug Resistant Organisms: None Reported Past Surgical History: Orthopedic Surgery Additional Past Surgical History / Comment(s): right ankle fracture with pinning repair Past Anesthesia/Blood Transfusion Reactions: No Reported Reaction Past Psychological History: ADD/ADHD, Anxiety, Depression Smoking Status: Vaper Past Alcohol Use History: Occasional Past Drug Use History: Prescription Drug Abuse - Past Family History Mother Family Medical History: Cancer Additional Family Medical History / Comment(s): breast Father Family Medical History: Cancer Additional Family Medical History / Comment(s): skin cancer Brother(s) Family Medical History: No Reported History Sister(s) Family Medical History: No Reported History General Exam Limitations: no limitations General appearance: alert, in no apparent distress Head exam: Present: atraumatic, normocephalic Eye exam: Present: normal appearance, PERRL ENT exam: Present: normal exam Neck exam: Present: normal inspection. Absent: tenderness, meningismus Respiratory exam: Present: normal lung sounds bilaterally. Absent: respiratory distress, wheezes, rales Cardiovascular Exam: Present: regular rate, normal rhythm GI/Abdominal exam: Present: soft. Absent: distended, tenderness Extremities exam: Present: normal inspection, normal capillary refill. Absent: pedal edema Neurological exam: Present: alert, oriented X3, CN II-XII intact, other (No ataxia, normal zdpkyr-ay-dale bilaterally, normal ahrk-ev-bncn bilaterally). Absent: motor sensory deficit Psychiatric exam: Present: normal affect, normal mood Skin exam: Present: warm, dry, intact. Absent: cyanosis, diaphoretic Course Vital Signs 05/06/20 05/06/20 09:03 11:03 Temperature 98.9 F Pulse Rate 67 62 Respiratory 18 18 Rate Blood Pressure 127/82 131/69 O2 Sat by Pulse 99 99 Oximetry - Reevaluation(s) Reevaluation #1: 05/06/20 11:07 Patient remains alert, no seizure activity while in the emergency department. EKG Findings - EKG Comments: EKG Findings:: EKG: Normal sinus rhythm with sinus arrhythmia, rate of 65, OR interval 122, QRS duration 82, QTC 418, no ST segment elevation. Medical Decision Making - Medical Decision Making 25-year-old male multiple falls, suspected focal seizure, likely related to benzodiazepine Since and withdrawal. Patient did have falls with head trauma, head CT performed negative for intracranial hemorrhage or mass effect. Patient has normal CBC, normal CMP. He will be observed overnight for continued seizure activity. Case is discussed with Dr. Haley who will admit. - Lab Data Result diagrams: 05/06/20 09:34 05/06/20 09:34 Lab Results 05/06/20 05/06/20 Range/Units 09:34 09:34 WBC 8.8 (3.8-10.6) k/uL RBC 5.30 (4.30-5.90) m/uL Hgb 17.0 D (13.0-17.5) gm/dL Hct 48.7 (39.0-53.0) % MCV 92.1 (80.0-100.0) fL MCH 32.1 (25.0-35.0) pg MCHC 34.9 (31.0-37.0) g/dL RDW 12.5 (11.5-15.5) % Plt Count 242 (150-450) k/uL MPV 6.7 Neutrophils % 68 % Lymphocytes % 19 % Monocytes % 6 % Eosinophils % 4 % Basophils % 2 % Neutrophils # 6.0 (1.3-7.7) k/uL Lymphocytes # 1.7 (1.0-4.8) k/uL Monocytes # 0.5 (0-1.0) k/uL Eosinophils # 0.3 (0-0.7) k/uL Basophils # 0.2 (0-0.2) k/uL Sodium 139 (137-145) mmol/L Potassium 4.5 (3.5-5.1) mmol/L Chloride 108 H (98-107) mmol/L Carbon Dioxide 25 (22-30) mmol/L Anion Gap 6 mmol/L BUN 9 (9-20) mg/dL Creatinine 0.86 (0.66-1.25) mg/dL Est GFR (CKD-EPI)AfAm >90 (>60 ml/min/1.73 sqM) Est GFR (CKD-EPI)NonAf >90 (>60 ml/min/1.73 sqM) Glucose 113 H (74-99) mg/dL Calcium 9.2 (8.4-10.2) mg/dL Total Bilirubin 1.1 (0.2-1.3) mg/dL AST 24 (17-59) U/L ALT 36 (4-49) U/L Alkaline Phosphatase 65 (38-126) U/L Total Protein 7.5 (6.3-8.2) g/dL Albumin 4.4 (3.5-5.0) g/dL Disposition Clinical Impression: Focal seizure, Benzodiazepine withdrawal Disposition: ADMITTED IP TO THIS [facility] Condition: Stable Is patient prescribed a controlled substance at d/c from ED?: No Referrals: Flakito Jaramillo DO [Primary Care Provider] - 1-2 days Decision to Admit Reason: Admit from EC Decision Date: 05/06/20 Decision Time: 11:09
--- NOTE | 2020-05-06 10:01 | CT ---
EXAMINATION TYPE: CT brain wo con DATE OF EXAM: 05/06/2020 COMPARISON: CT brain dated 04/19/2020. HISTORY: Falling, seizure activity CT DLP: 1070.4 mGycm. Automated Exposure Control for Dose Reduction was Utilized. TECHNIQUE: CT scan of the head is performed without contrast. FINDINGS: There is no acute intracranial hemorrhage, mass effect, or midline shift identified. The ventricles and sulci are within normal limits in size. Marina-white matter differentiation is maintain ed. The globes are intact and the visualized sinuses are clear. IMPRESSION: No acute intracranial hemorrhage or midline shift is seen. No significant change from pr ior.
[2020-05-06 10:19] LABS: Basophils # (A) 0.2 k/uL (0-0.2); Basophils % (A) 2 %; Eosinophils # (A) 0.3 k/uL (0-0.7); Eosinophils % (A) 4 %; HCT 48.7 % (39.0-53.0); Lymphocytes # (A) 1.7 k/uL (1.0-4.8); Lymphocytes % (A) 19 %; MCH 32.1 pg (25.0-35.0); MCHC 34.9 g/dL (31.0-37.0); MCV 92.1 fL (80.0-100.0); Mean Platelet Volume 6.7; Monocytes # (A) 0.5 k/uL (0-1.0); Monocytes % (A) 6 %; Neutrophils % (A) 68 %; Platelet Count 242 k/uL (150-450); RDW 12.5 % (11.5-15.5); WBC 8.8 k/uL (3.8-10.6)
[2020-05-06 10:30] LABS: ALT 36 U/L (4-49); AST 24 U/L (17-59); African American GFR (CKD) >90 (>60 ml/min/1.73 sqM); Albumin 4.4 g/dL (3.5-5.0); Alkaline Phosphatase 65 U/L (38-126); Anion Gap 6 mmol/L; Blood Urea Nitrogen 9 mg/dL (9-20); Calcium 9.2 mg/dL (8.4-10.2); Carbon Dioxide 25 mmol/L (22-30); Chloride 108 mmol/L (98-107); Glucose 113 mg/dL (74-99); Non-African American GFR(CKD) >90 (>60 ml/min/1.73 sqM); Potassium 4.5 mmol/L (3.5-5.1); Sodium 139 mmol/L (137-145); Total Bilirubin 1.1 mg/dL (0.2-1.3); Total Protein 7.5 g/dL (6.3-8.2)
[2020-05-06] MEDS ORDERED: THIAMINE 100 MG/ML 2 ML VIAL IM STA (11:05)
[2020-05-06] MEDS ORDERED: LORazepam 2 MG/ML INJ IV PRN ×4 (11:05→11:07)
[2020-05-06] MEDS ORDERED: NALOXONE 0.4 MG/ML 1 ML VIAL IV PRN (11:06)
[2020-05-06] MEDS ORDERED: ACETAMINOPHEN TAB 325 MG TAB PO PRN (11:06)
[2020-05-06] MEDS: SODIUM CHLORIDE 0.9% 1,000 ML IV SCH (11:15)
[2020-05-06 11:49] LABS: Appearance,Urine Clear (Clear); Bilirubin,Urine Negative (Negative); Blood,Urine Negative (Negative); Color,Urine Light Yellow; Glucose,Urine (UA) Negative (Negative); Ketones,Urine Negative (Negative); Leukocyte Esterase,Urine Negative (Negative); Nitrite,Urine Negative (Negative); PH, Urine 6.5 (5.0-8.0); Protein,Urine Negative (Negative); Specific Gravity,Urine 1.006 (1.001-1.035); Urobilinogen,Urine <2.0 mg/dL (<2.0)
[2020-05-06 11:59] VITALS: RESP 16
[2020-05-06 12:15] LABS: Amphetamine Screen,Urine Not Detected (NotDetected); Barbiturate Screen,Urine Not Detected (NotDetected); Benzodiazepines Screen,Urine Detected (NotDetected); Cocaine Screen,Urine Not Detected (NotDetected); Methadone Screen, Urine Not Detected (NotDetected); Opiate Screen,Urine Not Detected (NotDetected); Oxycodone Screen, Urine Not Detected (NotDetected); Phencyclidine Screen,Urine Not Detected (NotDetected); Tricyclic Antidepressant,Urine Not Detected (NotDetected); Urn Cannabinoid Scrn Detected (NotDetected)
[2020-05-06] MEDS ORDERED: THIAMINE 100 MG TAB PO SCH (17:30)
--- NOTE | 2020-05-06 18:26 | P.CNNES ---
History of Present Illness Consult date: 05/06/20 Requesting physician: Floyd Haley Reason for Consult: Seizure History of Present Illness: Patient is a 25-year-old male came to the hospital this morning at 9 AM for seizure like activity, multiple falls. Patient is currently going through outpatient detox from both alcohol and benzodiazepine abuse. He has been taking Xanax off and on as mentioned below. Patient states he broke up with his girlfriend, therefore he was taking Xanax 2 mg tablets, 2-3 tablets a day, 3-4 days a week. He has been doing this along with drinking alcohol 4-5 beers 3 times a week since 04/04/2020. He decided to go on rehab, therefore stopped doing both of these since 05/01/2020. Patient is getting outpatient rehab for substance abuse. This morning patient states that he was shaking, fell 3 times, when his legs give out. Patient denies any loss of consciousness, tongue bite or loss of control of urine. He was brought to the hospital for further management. No full body convulsions or tonic-clonic seizures reported. Patient states that from January through February 2020 he was taking a lot of Xanax, but not as much as the past month. He stopped taking Xanax for a month, went back on taking Xanax since 04/04/2020, as mentioned above. However he was continuing to drink alcohol for the last 6 years, until he stopped drinking alcohol on 05/01/2020. Vital signs on arrival blood pressure 127/82, pulse rate 67, temperature 98.9. CT head normal, EKG shows normal sinus rhythm with sinus arrhythmia. Blood test shows normal CBC, CMP, UA, urine drug screen positive for benzodiazepine and marijuana. Chavez virus PCR negative. According to previous records, patient has history of abuse with alcohol, benzodiazepine and Adderall. Also has anxiety depression. Review of Systems Patient feels anxiety, or jitteriness, symptoms of withdrawal. Denies headache, problem with the vision, hoarseness, sore throat dysphagia. Denies any chest pain, abdominal pain, nausea vomiting diarrhea. Past Medical History Past Medical History: No Reported History History of Any Multi-Drug Resistant Organisms: None Reported Past Surgical History: Orthopedic Surgery Additional Past Surgical History / Comment(s): right ankle fracture with pinning repair Past Anesthesia/Blood Transfusion Reactions: No Reported Reaction Past Psychological History: ADD/ADHD, Anxiety, Depression Smoking Status: Vaper Past Alcohol Use History: Occasional Past Drug Use History: Prescription Drug Abuse Additional Drug Use History / Comment(s): xanax and adderall use - Past Family History Mother Family Medical History: Cancer Additional Family Medical History / Comment(s): breast Father Family Medical History: Cancer Additional Family Medical History / Comment(s): skin cancer Brother(s) Family Medical History: No Reported History Sister(s) Family Medical History: No Reported History Medications and Allergies Home Medications Medication Instructions Recorded Confirmed Type No Known Home Medications 05/06/20 05/06/20 History Allergies Allergy/AdvReac Type Severity Reaction Status Date / Time No Known Allergies Allergy Verified 05/06/20 09:45 Physical Examination - Vital Signs Vital Signs: Vital Signs Temp Pulse Pulse Resp BP BP Pulse Ox 05/06/20 14:58 98.5 F 74 16 116/63 97 05/06/20 11:47 98 F 61 16 129/80 100 05/06/20 11:03 62 18 131/69 99 05/06/20 09:03 98.9 F 67 18 127/82 99 Intake and Output 05/06/20 05/06/20 05/06/20 06:59 14:59 22:59 Other: Weight 83.915 kg On examination patient is a young male, in no acute distress. Patient is alert awake oriented to time place and person. Speech and language functions are normal. Attention and concentration fund of knowledge is adequate. On cranial examination pupils are round and reacting to light, visual chowdhury are full on confrontation, extraocular muscles intact with no nystagmus. Face is symmetric, tongue protrudes to the midline. Palatal elevation and sensation normal, hearing and shoulder shrug normal. On muscle strength testing there is no pronator drift and the strength is normal in arms and legs distally and proximally, reflexes are symmetric and plantars downgoing. Sensory touch is equal. No ataxia for [id number] testing, tone and bulk of muscles normal. Patient is slightly tremulous. Gait deferred. On general examination there is no carotid bruit or murmur, peripheral pulses are present. No peripheral edema. Chest is clear, abdomen soft nontender. Results - Laboratory Findings CBC and BMP: 05/06/20 09:34 05/06/20 09:34 Abnormal Lab Findings: Abnormal Labs 05/06/20 05/06/20 09:34 11:04 Chloride 108 H Glucose 113 H U Benzodiazepines Scrn Detected H U Marijuana (THC) Screen Detected H Assessment and Plan Assessment: * Recurrent falls, tremors, seizure type spells, probably due to withdrawal from alcohol and Xanax. Patient denies any loss of consciousness, convulsions. * History of alcoholism and benzodiazepine abuse. * Anxiety disorder Plan: * Patient's symptoms are likely due to withdrawal from substance including alcohol and Xanax. May consider short-term treatment with Ativan so he can slowly wean off from benzodiazepine. * Watch for delirium tremens. * Avoid abrupt termination of use of benzodiazepine. * Patient has received thiamine. * Neurologically clear.
[2020-05-07] MEDS: SODIUM CHLORIDE 0.9% 1,000 ML IV SCH (00:48)
--- NOTE | 2020-05-07 01:38 | P.HPIM ---
History of Present Illness H&P Date: 05/06/20 Chief Complaint: recurrent falls Patient is a 25-year-old male with a known history of ADD/ADHD, anxiety, depression presents to ER due to recurrent falls and possible seizure activity. Patient has been taking Xanax for the past 1 month on and off. Patient states that he was taking 2 mg Xanax 3-4 times daily. For the past 4 days he has been trying to detox and did not take his Xanax pills. Since then patient has been having recurrent falls and also felt like both legs gave way and lightheaded. Patient has been drinking approximately 5 beers daily. Patient has been shaky and having multiple falls. Denies any seizure activity. No bladder or bowel incontinence. Otherwise patient states that he has been going through break- up.. Also states that he tried Xanax several years ago to relieve anxiety. But has been off since then until 1 month ago. Laboratory data reviewed. UDS is positive for benzodiazepines and marijuana. CT head showed no acute intracranial hemorrhage or midline shift. No significant change from prior. EKG showed normal sinus rhythm with sinus arrhythmia. Review of Systems Constitutional: Patient denies any fever or chills . No generalized weakness or weight loss. Abdomen: Patient denied nausea vomiting and diarrhea and abdominal pain. Cardiovascular: Patient denies any chest pain or short of breath no palpitations. Respiratory: patient denied any cough or sputum production. No shortness of breath Neurologic: Patient denied any numbness or tingling headache. Musculoskeletal: Patient denies any complaints of joint swelling or deformity. recurrent falls. Skin: Negative Psychiatric: Negative Endocrine: No heat or cold intolerance. No recent weight gain. Genitourinary: No dysuria or hematuria. All other 14 point ROS negative except the above Past Medical History Past Medical History: No Reported History History of Any Multi-Drug Resistant Organisms: None Reported Past Surgical History: Orthopedic Surgery Additional Past Surgical History / Comment(s): right ankle fracture with pinning repair Past Anesthesia/Blood Transfusion Reactions: No Reported Reaction Past Psychological History: ADD/ADHD, Anxiety, Depression Smoking Status: Vaper Past Alcohol Use History: Occasional Past Drug Use History: Prescription Drug Abuse Additional Drug Use History / Comment(s): xanax and adderall use - Past Family History Mother Family Medical History: Cancer Additional Family Medical History / Comment(s): breast Father Family Medical History: Cancer Additional Family Medical History / Comment(s): skin cancer Brother(s) Family Medical History: No Reported History Sister(s) Family Medical History: No Reported History Medications and Allergies Home Medications Medication Instructions Recorded Confirmed Type No Known Home Medications 05/06/20 05/06/20 History Allergies Allergy/AdvReac Type Severity Reaction Status Date / Time No Known Allergies Allergy Verified 05/06/20 09:45 Physical Exam Vitals: Vital Signs Temp Pulse Pulse Resp BP BP Pulse Ox 05/06/20 11:47 98 F 61 16 129/80 100 05/06/20 11:03 62 18 131/69 99 05/06/20 09:03 98.9 F 67 18 127/82 99 Intake and Output 05/05/20 05/06/20 05/06/20 22:59 06:59 14:59 Other: Weight 83.915 kg PHYSICAL EXAMINATION: Patient is lying in the bed comfortably, no acute distress, awake alert and oriented.. HEENT: Normocephalic. Neck is supple. Pupils reactive. Nostrils clear. Oral cavity is moist. Ears reveal no drainage. Neck reveals no JVD, carotid bruits, or thyromegaly. CHEST EXAMINATION: Trachea is central. Symmetrical expansion. Lung chowdhury clear to auscultation and percussion. CARDIAC: Normal S1, S2 with no gallops. No murmurs ABDOMEN: Soft. Bowel sounds normal. No organomegaly. No abdominal bruits. Extremities: reveal no edema. No clubbing or cyanosis Neurologically awake, alert, oriented x3 with well-coordinated movements. No focal deficits noted Skin: No rash or skin lesions. Psychiatric: Coperative. Nonsuicidal Musculoskeletal: No joint swelling or deformity. Normal range of motion. Results CBC & Chem 7: 05/06/20 09:34 05/06/20 09:34 Labs: Abnormal Lab Results - Last 24 Hours (Table) 05/06/20 05/06/20 Range/Units 09:34 11:04 Chloride 108 H (98-107) mmol/L Glucose 113 H (74-99) mg/dL U Benzodiazepines Scrn Detected H (NotDetected) U Marijuana (THC) Screen Detected H (NotDetected) Thrombosis Risk Factor Assmnt - DVT/VTE Prophylaxis DVT/VTE Prophylaxis: Mechanical Prophylaxis ordered - Choose All That Apply Any of the Below Risk Factors Present?: Yes Each Factor Represents 1 point: Obesity (BMI >25) Other Risk Factors: No Other congenital or acquired thrombophilia - If yes, enter type in comment: No Thrombosis Risk Factor Assessment Total Risk Factor Score: 1 Thrombosis Risk Factor Assessment Level: Low Risk Assessment and Plan Assessment: Recurrent falls and shakiness likely due to benzodiazepine withdrawal Acute alcohol withdrawal symptoms UDS is positive for benzos and marijuana ADD/ADHD Anxiety/depression History of alcohol and benzodiazepine abuse DVT prophylaxis with early ambulation. Plan: Patient will be continued on seizure precautions and fall precautions. IV fluids. Monitor for alcohol withdrawal symptoms and DTs. Ativan as needed and continue with thiamine and follow-up closely. Neurology was consulted and further recommendations based on the clinical course. Patient was counseled extensively for alcohol abstinence. Time with Patient: Greater than 30
[2020-05-07 08:06] VITALS: BP 120/65; PULSE 64; TEMP 98.1
[2020-05-07] MEDS ORDERED: THIAMINE 100 MG TAB PO SCH (09:00)
[2020-05-07] MEDS ORDERED: FOLIC ACID 1 MG TAB PO SCH (09:00)
== END 2020-05-07 12:48 | disposition home or self-care (01) | DRG 897 ==
LOC: EC 09:00 → 1SOBS 11:16 → OBSVTOIN 05-07 09:10
PROVIDERS: ADMIT Internal Medicine; ATTEND Internal Medicine
DX: F10.239 Alcohol dependence with withdrawal, unspecified (principal); F13.239 Sedative, hypnotic or anxiolytic dependence with withdrawal, unspecified; F41.8 Other specified anxiety disorders; F90.9 Attention-deficit hyperactivity disorder, unspecified type; R29.6 Repeated falls; R56.9 Unspecified convulsions; S09.90XA Unspecified injury of head, initial encounter; Z80.8 Family history of malignant neoplasm of other organs or systems; Z20.828 Contact with and (suspected) exposure to other viral communicable diseases; F15.11 Other stimulant abuse, in remission
CPT/HCPCS: 36415; 70450; 80053; 80306; 81003; 85025; 87635; 93005; 96360; 99285

== ENCOUNTER 2022-02-24 21:57 | Emergency (ER) | payer BC ==
[2022-02-24 22:07] VITALS: TEMP 98.7
[2022-02-24] MEDS ORDERED: NALOXONE 0.4 MG/ML 1 ML VIAL IV STA (22:25)
[2022-02-24] MEDS ORDERED: SODIUM CHLORIDE 0.9% 1,000 ML IV STA (22:25)
[2022-02-24] MEDS ORDERED: SODIUM CHLORIDE 0.9% 1,000 ML IV ONE (22:30)
[2022-02-24] MEDS ORDERED: ONDANSETRON 4 MG/2 ML VIAL IVP STA (22:30)
--- NOTE | 2022-02-24 22:35 | ED ---
General Adult HPI - General Chief complaint: Neuro Symptoms/Deficit Stated complaint: vomitting,dehydrated Time Seen by Provider: 02/24/22 22:16 Source: patient, family, RN notes reviewed, old records reviewed Mode of arrival: wheelchair Limitations: no limitations - History of Present Illness Initial comments: Patient is a 26-year-old male who presents emergency Department with no significant past medical history for suspected polysubstance abuse. B enzodiazepines, amphetamines, opiates all week this week. Has been having nausea and vomiting as well. Patient is brought in by his girlfriend for further evaluation. He denies any chest pain, abdominal pain, nausea, vomiting currently. Denies any shortness of breath. Is sleepy. Has pinpoint pupils. Has somewhat decreased respiratory drive with mild hypoxia on room air which resolves when he is awakened. Denies any cough or fevers. Is easily arousable. GCS is 15 currently. Presents with the skull friend who is unaware of the history of polysubstance abuse. Is uncertain how much he used. States he is not certain if it was clean as he purchased it off of the street. Denies any IV drug use. Presents for further evaluation at this time. Has been 3 days of these symptoms, but endorses 1 week of drug use. - Related Data Previous Rx's Medication Instructions Recorded Folic Acid 1 mg PO DAILY 30 Days #30 tab 05/07/20 Thiamine [Vitamin B-1] 100 mg PO DAILY 30 Days #30 tab 05/07/20 Naloxone HCl [Narcan] 4 mg NASAL ONCE #1 each 02/24/22 Allergies Allergy/AdvReac Type Severity Reaction Status Date / Time No Known Allergies Allergy Verified 05/06/20 09:45 Review of Systems ROS Statement: Those systems with pertinent positive or pertinent negative responses have been documented in the HPI. Review of Systems: CONST: Denies fever EYES: Denies blurry vision ENT: Denies nasal congestion C/V: Denies Chest pain RESP: Denies shortness of breath GI: Denies abdominal pain : Denies dysuria SKIN: Denies rash. MSK: Denies joint pain. NEURO: Denies headache ROS Other: All systems not noted in ROS Statement are negative. Past Medical History Past Medical History: No Reported History History of Any Multi-Drug Resistant Organisms: None Reported Past Surgical History: Orthopedic Surgery Additional Past Surgical History / Comment(s): right ankle fracture with pinning repair Past Anesthesia/Blood Transfusion Reactions: No Reported Reaction Past Psychological History: ADD/ADHD, Anxiety, Depression Smoking Status: Vaper Past Alcohol Use History: Occasional Past Drug Use History: Prescription Drug Abuse - Past Family History Mother Family Medical History: Cancer Additional Family Medical History / Comment(s): breast Father Family Medical History: Cancer Additional Family Medical History / Comment(s): skin cancer Brother(s) Family Medical History: No Reported History Sister(s) Family Medical History: No Reported History General Exam - General Exam Comments Initial Comments: General: Appears sleepy but is easily arousable. HEAD: Normal with no signs of head trauma. EYES: Pupils are pinpoint and minimally reactive to light. EOMI. Conjunctiva normal. ENT: Hearing grossly intact, normal oropharynx. RESPIRATORY: Clear breath sounds bilaterally. No wheezes, rales, or rhonchi. Hypoxia on room air likely secondary to decreased respiratory rate from opiate use. C/V: Regular rate and rhythm. S1 and S2 auscultated, no edema, peripheral pulses 2+ and intact throughout ABD: Abd is soft, nontender, nondistended EXT: Normal range of motion, no obvious deformity SKIN: No rashes or lesions observed on exposed skin. NEURO: Alert and oriented 3. No focal sensory strength deficits. Is sleepy but easily arousable. Limitations: no limitations Course Vital Signs 02/24/22 02/24/22 02/24/22 22:03 22:26 22:48 Temperature 98.7 F Pulse Rate 78 73 Respiratory 16 15 16 Rate Blood Pressure 112/67 127/77 O2 Sat by Pulse 90 L 94 L Oximetry 02/24/22 02/24/22 23:45 23:59 Temperature Pulse Rate 105 H Respiratory 18 18 Rate Blood Pressure 123/74 O2 Sat by Pulse 95 Oximetry Medical Decision Making - Medical Decision Making Based on the patient's presentation and physical exam, I do suspect polys ubstance abuse for the patient's current complaints. Does seem to have decreased respiratory rate as well as mild hypoxia on room air likely secondary to opiate use which he endorses using. Provide him with a small dose of Narcan as well as IV fluids, Zofran. We will obtain laboratory studies as well as UDS and UA. He does appear mildly dehydrated. Chest x-ray and EKG will also be obtained. Vital signs otherwise are within acceptable limits. Patient's girlfriend and patient was in agreement this plan. Patient responded well to 0.4 mg of Narcan. He is awake and alert. Once to leave at this time. I did speak with him and talked her into waiting until laboratory studies and IV fluids were administered. He was in agreement this plan. Laboratory studies were remarkable for a salicylate level and normal range of 1.5. Covid is not detected. Remainder the labs are unremarkable. Urine studies are still pending. Chest x-ray shows no acute cardio pulmonary process. EKG shows no acute findings no acute ischemic process. At this time on reevaluation, patient was still somewhat sleepy after waking up from Narcan. He was administered an additional 0.8 mg of Narcan. We watched him for 30 more minutes. At this time he did want to leave. I did discuss with him that due to him having repeated episodes of him requiring Narcan I would like to admit him to observation. He refuses at this time. I discussed with him that at this time I believe it would be AGAINST MEDICAL ADVICE if he leaves. The patient was apprised of the potential risks of leaving the hospital AGAINST MEDICAL ADVICE, including serious complications, permanent disability, and . At the time of my interview the patient, the patient was alert, oriented, and capable. Patient signed AMA form, which was witnessed and signed by nursing staff, and placed in patient's chart. I urged the patient to return to the hospital as soon as possible to complete evaluation and treatment. Patient will be provided with a prescription for intranasal Narcan. I counseled him on stopping his polysubstance abuse. Patient left AGAINST MEDICAL ADVICE at this time. - Lab Data Result diagrams: 02/24/22 22:30 02/24/22 22:30 Lab Results 02/24/22 02/24/22 02/24/22 Range/Units 22:30 22:30 22:30 WBC 8.9 (3.8-10.6) k/uL RBC 5.17 (4.30-5.90) m/uL Hgb 16.6 (13.0-17.5) gm/dL Hct 47.4 (39.0-53.0) % MCV 91.6 (80.0-100.0) fL MCH 32.1 (25.0-35.0) pg MCHC 35.0 (31.0-37.0) g/dL RDW 12.2 (11.5-15.5) % Plt Count 251 (150-450) k/uL MPV 6.8 Neutrophils % 58 % Lymphocytes % 28 % Monocytes % 7 % Eosinophils % 3 % Basophils % 2 % Neutrophils # 5.2 (1.3-7.7) k/uL Lymphocytes # 2.5 (1.0-4.8) k/uL Monocytes # 0.7 (0-1.0) k/uL Eosinophils # 0.3 (0-0.7) k/uL Basophils # 0.2 (0-0.2) k/uL Sodium 136 L (137-145) mmol/L Potassium 4.7 (3.5-5.1) mmol/L Chloride 93 L (98-107) mmol/L Carbon Dioxide 30 (22-30) mmol/L Anion Gap 13 mmol/L BUN 19 (9-20) mg/dL Creatinine 1.15 (0.66-1.25) mg/dL Est GFR (CKD-EPI)AfAm >90 (>60 ml/min/1.73 sqM) Est GFR (CKD-EPI)NonAf 87 (>60 ml/min/1.73 sqM) Glucose 101 H (74-99) mg/dL Plasma Lactic Acid Markus 0.9 (0.7-2.0) mmol/L Calcium 9.4 (8.4-10.2) mg/dL Total Bilirubin 0.7 (0.2-1.3) mg/dL AST 28 (17-59) U/L ALT 30 (4-49) U/L Alkaline Phosphatase 80 (38-126) U/L Total Protein 8.5 H (6.3-8.2) g/dL Albumin 5.2 H (3.5-5.0) g/dL Amylase 80 (30-110) U/L Lipase 40 (23-300) U/L Salicylates 1.5 mg/dL Acetaminophen <10.0 ug/mL Serum Alcohol <10 mg/dL Coronavirus (PCR) (Not Detectd) 02/24/22 Range/Units 22:55 WBC (3.8-10.6) k/uL RBC (4.30-5.90) m/uL Hgb (13.0-17.5) gm/dL Hct (39.0-53.0) % MCV (80.0-100.0) fL MCH (25.0-35.0) pg MCHC (31.0-37.0) g/dL RDW (11.5-15.5) % Plt Count (150-450) k/uL MPV Neutrophils % % Lymphocytes % % Monocytes % % Eosinophils % % Basophils % % Neutrophils # (1.3-7.7) k/uL Lymphocytes # (1.0-4.8) k/uL Monocytes # (0-1.0) k/uL Eosinophils # (0-0.7) k/uL Basophils # (0-0.2) k/uL Sodium (137-145) mmol/L Potassium (3.5-5.1) mmol/L Chloride (98-107) mmol/L Carbon Dioxide (22-30) mmol/L Anion Gap mmol/L BUN (9-20) mg/dL Creatinine (0.66-1.25) mg/dL Est GFR (CKD-EPI)AfAm (>60 ml/min/1.73 sqM) Est GFR (CKD-EPI)NonAf (>60 ml/min/1.73 sqM) Glucose (74-99) mg/dL Plasma Lactic Acid Markus (0.7-2.0) mmol/L Calcium (8.4-10.2) mg/dL Total Bilirubin (0.2-1.3) mg/dL AST (17-59) U/L ALT (4-49) U/L Alkaline Phosphatase (38-126) U/L Total Protein (6.3-8.2) g/dL Albumin (3.5-5.0) g/dL Amylase (30-110) U/L Lipase (23-300) U/L Salicylates mg/dL Acetaminophen ug/mL Serum Alcohol mg/dL Coronavirus (PCR) Not Detected (Not Detectd) - EKG Data -: EKG Interpreted by Me EKG Comments: 12-lead Electrocardiogram Interpretation Note EKG was reviewed and interpreted by myself. 12-lead ECG performed at 2247 is interpreted by me as revealing normal sinus rhythm at a rate of 77 beats per minute. [place] is normal. AR interval is 137 ms, QRS duration is 85 ms, QTc is 394 ms.. There were no ST or T wave abnormalities to suggest myocardial ischemia or injury. R wave progression across the precordium was satisfactory. By my interpretation this EKG is non-diagnostic for acute ischemia. Disposition Clinical Impression: Polysubstance abuse, Opiate abuse, episodic, Left against medical advice Disposition: Left Against Medical Advice Condition: Stable Prescriptions: Naloxone HCl [Narcan] 4 mg NASAL ONCE #1 each Referrals: None,Stated [Primary Care Provider] - 1-2 days Time of Disposition: 23:35
[2022-02-24 22:54] LABS: ALT 30 U/L (4-49); AST 28 U/L (17-59); Acetaminophen <10.0 ug/mL; African American GFR (CKD) >90 (>60 ml/min/1.73 sqM); Albumin 5.2 g/dL (3.5-5.0); Alcohol <10 mg/dL; Alkaline Phosphatase 80 U/L (38-126); Amylase 80 U/L (30-110); Anion Gap 13 mmol/L; Basophils # (A) 0.2 k/uL (0-0.2); Basophils % (A) 2 %; Blood Urea Nitrogen 19 mg/dL (9-20); Calcium 9.4 mg/dL (8.4-10.2); Carbon Dioxide 30 mmol/L (22-30); Chloride 93 mmol/L (98-107); Eosinophils # (A) 0.3 k/uL (0-0.7); Eosinophils % (A) 3 %; Glucose 101 mg/dL (74-99); HCT 47.4 % (39.0-53.0); HGB 16.6 gm/dL (13.0-17.5); Lipase 40 U/L (23-300); Lymphocytes # (A) 2.5 k/uL (1.0-4.8); Lymphocytes % (A) 28 %; MCH 32.1 pg (25.0-35.0); MCV 91.6 fL (80.0-100.0); Mean Platelet Volume 6.8; Monocytes # (A) 0.7 k/uL (0-1.0); Monocytes % (A) 7 %; Neutrophils # (A) 5.2 k/uL (1.3-7.7); Neutrophils % (A) 58 %; Non-African American GFR(CKD) 87 (>60 ml/min/1.73 sqM); Platelet Count 251 k/uL (150-450); Potassium 4.7 mmol/L (3.5-5.1); RBC 5.17 m/uL (4.30-5.90); RDW 12.2 % (11.5-15.5); Salicylate 1.5 mg/dL; Sodium 136 mmol/L (137-145); Total Bilirubin 0.7 mg/dL (0.2-1.3); Total Protein 8.5 g/dL (6.3-8.2); WBC 8.9 k/uL (3.8-10.6)
--- NOTE | 2022-02-24 23:21 | XR ---
EXAMINATION TYPE: XR chest 1V portable DATE OF EXAM: 02/24/2022 COMPARISON: NONE HISTORY: Short of breath TECHNIQUE: Single view FINDINGS: Heart and mediastinum are normal. Lungs are clear. Diaphragm is normal. Bony thorax is inta ct. IMPRESSION: Normal chest.
[2022-02-24] MEDS ORDERED: NALOXONE 0.4 MG/ML 1 ML VIAL IVP STA (23:48)
[2022-02-25 00:03] VITALS: RESP 18
[2022-02-25 00:08] VITALS: BP 123/74; PULSE 105
== END 2022-02-25 00:25 | disposition left against medical advice (07) ==
LOC: EC 21:57
DX: F19.10 Other psychoactive substance abuse, uncomplicated (principal); F11.10 Opioid abuse, uncomplicated; Z20.822 Contact with and (suspected) exposure to COVID-19; F17.290 Nicotine dependence, other tobacco product, uncomplicated
CPT/HCPCS: 93005; 80053; 82150; 83605; 83690; 85025; 80143; 80320; 87635; 80179; 71045; 99284; 96374; 96361; 96375; J2310; J2405